=== PATIENT | female | born 1965 | race Caucasian/White ===

== ENCOUNTER 2018-09-09 18:22 | Emergency (ER) | payer OTHER, MEDICAID ==
[~2018-09-09] VITALS: Ht 157.5 cm; Wt 95.3 kg
[2018-09-09 18:30] VITALS: BP 182/100
[2018-09-09] MEDS ORDERED: ZANTAC 150MG T150 MG PO (18:34)
[2018-09-09] MEDS ORDERED: HYDROXYZINE HCL25 M1 PO (18:35)
[2018-09-09] MEDS ORDERED: MAXZIDE-25 MG1 EACH PO (18:35)
[2018-09-09] MEDS ORDERED: CELEXA40 MG PO (18:35)
[2018-09-09] MEDS ORDERED: KEFLEX500 M1 PO (19:16)
[2018-09-09] MEDS ORDERED: MEDROLDOSEPACK PO (19:16)
== END 2018-09-09 19:22 | disposition home or self-care (01) ==
LOC: M.ERS 18:22
DX: L23.7 Allergic contact dermatitis due to plants, except food (principal); I10 Essential (primary) hypertension; F41.9 Anxiety disorder, unspecified; F32.9 Major depressive disorder, single episode, unspecified; K21.9 Gastro-esophageal reflux disease without esophagitis; Z88.8 Allergy status to other drugs, medicaments and biological substances

== ENCOUNTER 2018-10-01 20:28 | Emergency (ER) | payer OTHER, MEDICAID ==
[~2018-10-01] VITALS: Ht 157.5 cm; Wt 97.5 kg
[~2018-10-01 20:28] MED LIST: CELEXA40 MG PO; HYDROXYZINE HCL25 M1 PO; KEFLEX500 M1 PO; MAXZIDE-25 MG1 EACH PO; MEDROLDOSEPACK PO; ZANTAC 150MG T150 MG PO
[2018-10-01 20:54] LABS: ABSOLUTE BASOPHILS 0.1 thou/uL (0.0-0.2); ABSOLUTE EOSINOPHILS 0.6 thou/uL (0.0-0.7); ABSOLUTE LYMPHOCYTES 2.2 thou/uL (0.8-5.3); ABSOLUTE MONOCYTES 0.9 thou/uL (0.0-1.2); ABSOLUTE NEUTROPHILS 5.7 thou/uL (1.6-8.1); BASOPHILS 1.1 %; EOSINOPHILS 6.2 %; HEMATOCRIT 46.5 % (37.0-47.0); HEMOGLOBIN 15.4 gm/dL (12.0-15.0); LYMPHOCYTES 23.1 %; MCV 81.8 fL (80.0-100.0); MONOCYTES 9.5 %; MPV 7.2 fl. (7.2-11.1); NUCLEATED RBCS 0 /100WBC; PLATELET COUNT* 316 thou/uL (150-400); POLYS 60.1 %; RBC 5.69 mil/uL (4.20-5.00); RDW-CV 15.2 % (10.5-14.5); WBC 9.4 thou/uL (4.0-11.0)
[2018-10-01 21:01] LABS: URINE BILIRUBIN NEGATIVE (Negative); URINE BLOOD NEGATIVE (Negative); URINE CLARITY CLEAR; URINE COLOR YELLOW; URINE GLUCOSE-RANDOM NEGATIVE (Negative); URINE KETONES NEGATIVE (Negative); URINE LEUKOCYTES-REFLEX NEGATIVE (Negative); URINE NITRITE-REFLEX NEGATIVE (Negative); URINE PROTEIN NEGATIVE (Negative); URINE UROBILINOGEN 0.2 E.U./dl (0.2-1.0)
[2018-10-01 21:03] LABS: ANION GAP 8 mmol/L (7-16); BUN 12 mg/dL (7-18); CALCIUM 8.6 mg/dL (8.5-10.1); CHLORIDE 102 mmol/L (98-107); CO2 29 mmol/L (21-32); CREATININE 0.9 mg/dL (0.6-1.3); GLUCOSE 110 mg/dL (70-99); POTASSIUM 3.7 mmol/L (3.5-5.1); SODIUM 139 mmol/L (136-145)
[2018-10-01 21:09] LABS: AMP/METHAMP Negative (Negative); BARBITURATES Negative (Negative); BENZODIAZEPINES Negative (Negative); COCAINE Negative (Negative); METHADONE Negative (Negative); OPIATES Negative (Negative); PCP Negative (Negative); THC Negative (Negative)
[2018-10-01 21:18] LABS: ALBUMIN 2.9 g/dL (3.4-5.0); ALKALINE PHOSPHATASE 63 U/L (46-116); LIPASE 133 U/L (73-393); NT-PRO BRAIN NAT PEPTIDE 146 pg/mL (<300); SGOT 21 U/L (15-37); SGPT 27 U/L (30-65); TOTAL BILIRUBIN 0.3 mg/dL (<0.1-1.0); TROPONIN-I LEVEL <0.06 ng/mL (<0.06)
[2018-10-01] MEDS ORDERED: ZOFRAN ODT4 MG PO (23:30)
[2018-10-01] MEDS ORDERED: PREDNISONE50 MG PO (23:30)
[2018-10-01] MEDS ORDERED: MOTION RELIEF25 MG PO (23:30)
[2018-10-01 23:50] VITALS: BP 150/78
--- NOTE | 2018-10-02 10:50 | EKG ---
[place] [address] ELECTROCARDIOGRAM REPORT Name: LYLA BROWN Room: [facility]#: [id number] Admission: 10/01/18 Attend Phys: Discharge: 10/01/18 Date of : 67 Report #: [id number] THIS REPORT FOR: //name// [facility] ED Test Date: 2018-10-01 Test Time: 20:52:19 Pat Name: LYLA STEPHANIE Department: Room: Gender: F Hematology Supervisor: [place] : 1965 Requested By: Cher Negrete Order Number: [id number] MD: Leon Bobo Measurements Intervals [place] Rate: 79 P: 41 NH: 132 QRS: 9 QRSD: 93 T: 27 QT: 391 QTc: 449 Interpretive Statements Sinus rhythm Low voltage, precordial leads No previous ECG available for comparison Electronically Signed On 10-02-2018 10:50:42 CDT by Leon Bobo [email or web address] <ELECTRONICALLY SIGNED> By: Leon Bobo MD, [facility] 10/02/18 1050 51 51 Leon Bobo MD, [facility] /EPI
== END 2018-10-01 23:51 | disposition home or self-care (01) ==
LOC: M.ERS 20:28
PROVIDERS: Emergency Medicine
DX: R42 Dizziness and giddiness (principal); I10 Essential (primary) hypertension; F41.9 Anxiety disorder, unspecified; F32.9 Major depressive disorder, single episode, unspecified; K21.9 Gastro-esophageal reflux disease without esophagitis; Z90.710 Acquired absence of both cervix and uterus; Z88.8 Allergy status to other drugs, medicaments and biological substances

== ENCOUNTER 2018-10-03 20:12 | Emergency (ER) | payer OTHER, MEDICAID ==
[~2018-10-03] VITALS: Ht 157.5 cm; Wt 97.5 kg
[~2018-10-03 20:12] MED LIST changes: +MOTION RELIEF25 MG PO; +PREDNISONE50 MG PO; +ZOFRAN ODT4 MG PO
[2018-10-03] MEDS ORDERED: KEFLEX500 M1 PO (20:56)
[2018-10-03 21:07] VITALS: BP 146/93
== END 2018-10-03 21:08 | disposition home or self-care (01) ==
LOC: M.ERS 20:12
DX: S80.02XA Contusion of left knee, initial encounter (principal); L03.115 Cellulitis of right lower limb; R60.0 Localized edema; I10 Essential (primary) hypertension; F41.9 Anxiety disorder, unspecified; F32.9 Major depressive disorder, single episode, unspecified; K21.9 Gastro-esophageal reflux disease without esophagitis; Z90.710 Acquired absence of both cervix and uterus; Z88.8 Allergy status to other drugs, medicaments and biological substances; W18.39XA Other fall on same level, initial encounter; Y93.89 Activity, other specified; Y92.89 Other specified places as the place of occurrence of the external cause; Y99.0 Civilian activity done for income or pay

== ENCOUNTER 2019-11-17 22:35 | Emergency (ER) | payer OTHER, MEDICAID ==
[~2019-11-17] VITALS: Ht 157.5 cm; Wt 95.3 kg
[2019-11-17] MEDS ORDERED: BUSPIRONE HCL15 MG PO (22:54)
[2019-11-17] MEDS ORDERED: SERTRALINE HCL50 MG PO (22:54)
[2019-11-17] MEDS ORDERED: OMEPRAZOLE 20 M20 M1 PO (22:55)
[2019-11-17] MEDS ORDERED: MOBIC15 MG PO (23:59)
[2019-11-18 00:17] VITALS: BP 161/108
== END 2019-11-18 00:17 | disposition home or self-care (01) ==
LOC: M.ERS 22:35
DX: S93.492A Sprain of other ligament of left ankle, initial encounter (principal); I10 Essential (primary) hypertension; K21.9 Gastro-esophageal reflux disease without esophagitis; Z88.8 Allergy status to other drugs, medicaments and biological substances; Z90.710 Acquired absence of both cervix and uterus; X50.1XXA Overexertion from prolonged static or awkward postures, initial encounter; Y93.89 Activity, other specified; Y92.89 Other specified places as the place of occurrence of the external cause; Y99.8 Other external cause status

== ENCOUNTER 2019-11-24 18:40 | Emergency (ER) | payer OTHER, MEDICAID ==
[~2019-11-24] VITALS: Ht 157.5 cm; Wt 99.8 kg
[~2019-11-24 18:40] MED LIST changes: +BUSPIRONE HCL15 MG PO; +MOBIC15 MG PO; +OMEPRAZOLE 20 M20 M1 PO; +SERTRALINE HCL50 MG PO
[2019-11-24] MEDS ORDERED: SEROQUEL 25 MG25 MG PO (19:00)
[2019-11-24] MEDS ORDERED: PROMETHAZINE-D473 M1 PO (19:27)
[2019-11-24] MEDS ORDERED: IMITREX 50 MG T50 MG PO (19:52)
[2019-11-24 20:03] VITALS: BP 161/96
== END 2019-11-24 20:05 | disposition home or self-care (01) ==
LOC: M.ERS 18:40
DX: J06.9 Acute upper respiratory infection, unspecified (principal); Z20.828 Contact with and (suspected) exposure to other viral communicable diseases; G43.909 Migraine, unspecified, not intractable, without status migrainosus; I10 Essential (primary) hypertension; Z79.899 Other long term (current) drug therapy; Z88.1 Allergy status to other antibiotic agents

== ENCOUNTER 2019-11-27 09:07 | Emergency (ER) | payer OTHER, MEDICAID ==
[~2019-11-27] VITALS: Ht 157.5 cm; Wt 99.8 kg
[~2019-11-27 09:07] MED LIST changes: +IMITREX 50 MG T50 MG PO; +PROMETHAZINE-D473 M1 PO; +SEROQUEL 25 MG25 MG PO
[2019-11-27] MEDS ORDERED: AUGMENTIN 875-1 EACH PO (10:10)
[2019-11-27 10:25] VITALS: BP 148/90
== END 2019-11-27 10:26 | disposition home or self-care (01) ==
LOC: M.ERS 09:07
DX: J02.0 Streptococcal pharyngitis (principal); I10 Essential (primary) hypertension; Z88.1 Allergy status to other antibiotic agents; Z90.710 Acquired absence of both cervix and uterus; Z79.899 Other long term (current) drug therapy

== ENCOUNTER 2020-01-07 06:09 | Emergency (ER) | payer OTHER, MEDICAID ==
[~2020-01-07] VITALS: Ht 157.5 cm; Wt 99.8 kg
[~2020-01-07 06:09] MED LIST changes: +AUGMENTIN 875-1 EACH PO
[2020-01-07] MEDS ORDERED: CILOXAN5 ML EA. EYE (06:29)
[2020-01-07 06:36] VITALS: BP 181/89
== END 2020-01-07 06:37 | disposition home or self-care (01) ==
LOC: M.ERS 06:09
DX: H10.9 Unspecified conjunctivitis (principal); I10 Essential (primary) hypertension; K21.9 Gastro-esophageal reflux disease without esophagitis; Z88.8 Allergy status to other drugs, medicaments and biological substances; Z88.1 Allergy status to other antibiotic agents; Z90.710 Acquired absence of both cervix and uterus

== ENCOUNTER 2020-01-17 12:17 | Emergency (ER) | payer OTHER, MEDICAID ==
[~2020-01-17] VITALS: Ht 157.5 cm; Wt 99.8 kg
[~2020-01-17 12:17] MED LIST changes: +CILOXAN5 ML EA. EYE
[2020-01-17 12:31] LABS: URINE BILIRUBIN NEGATIVE (Negative); URINE BLOOD NEGATIVE (Negative); URINE CLARITY CLEAR; URINE COLOR YELLOW; URINE GLUCOSE-RANDOM NEGATIVE (Negative); URINE KETONES NEGATIVE (Negative); URINE LEUKOCYTES-REFLEX NEGATIVE (Negative); URINE NITRITE-REFLEX NEGATIVE (Negative); URINE PROTEIN NEGATIVE (Negative); URINE SPECIFIC GRAVITY >= 1.030 (1.005-1.030); URINE UROBILINOGEN 0.2 E.U./dl (0.2-1.0)
[2020-01-17 12:42] LABS: ABSOLUTE BASOPHILS 0.1 thou/uL (0.0-0.2); ABSOLUTE EOSINOPHILS 0.2 thou/uL (0.0-0.7); ABSOLUTE LYMPHOCYTES 1.8 thou/uL (0.8-5.3); ABSOLUTE MONOCYTES 0.5 thou/uL (0.0-1.2); ABSOLUTE NEUTROPHILS 5.2 thou/uL (1.6-8.1); EOSINOPHILS 2.6 %; HEMATOCRIT 45.5 % (37.0-47.0); HEMOGLOBIN 15.1 gm/dL (12.0-15.0); LYMPHOCYTES 23.3 %; MCH 27.6 pg (26.0-34.0); MCHC 33.2 g/dL (28.0-37.0); MCV 83.1 fL (80.0-100.0); MONOCYTES 6.8 %; MPV 7.1 fl. (7.2-11.1); NUCLEATED RBCS 0 /100WBC; PLATELET COUNT* 338 thou/uL (150-400); POLYS 66.3 %; RBC 5.48 mil/uL (4.20-5.00); RDW-CV 14.5 % (10.5-14.5); WBC 7.8 thou/uL (4.0-11.0)
[2020-01-17 13:13] LABS: CREATININE 1.3 mg/dL (0.6-1.3); POTASSIUM 3.1 mmol/L (3.5-5.1)
[2020-01-17 13:18] LABS: ALBUMIN 3.8 g/dL (3.4-5.0); TOTAL BILIRUBIN 0.7 mg/dL (<0.1-1.0); TOTAL PROTEIN 7.9 g/dL (6.4-8.2)
[2020-01-17] MEDS ORDERED: ONDANSETRON ODT4 MG PO (14:17)
[2020-01-17] MEDS ORDERED: NORCO 5-325 TA1 EAC2 PO (14:17)
[2020-01-17 14:31] VITALS: BP 140/101
== END 2020-01-17 14:31 | disposition home or self-care (01) ==
LOC: M.ERS 12:17
PROVIDERS: Physician Assistant
DX: R73.9 Hyperglycemia, unspecified (principal); R10.11 Right upper quadrant pain; R11.2 Nausea with vomiting, unspecified; R19.7 Diarrhea, unspecified; I10 Essential (primary) hypertension; Z90.710 Acquired absence of both cervix and uterus; Z79.899 Other long term (current) drug therapy; Z88.1 Allergy status to other antibiotic agents

== ENCOUNTER 2020-05-14 13:43 | Emergency (ER) | payer OTHER, MEDICAID ==
[~2020-05-14] VITALS: Ht 157.5 cm; Wt 102.1 kg
[~2020-05-14 13:43] MED LIST changes: +NORCO 5-325 TA1 EAC2 PO; +ONDANSETRON ODT4 MG PO
[2020-05-14 14:43] LABS: ABSOLUTE BASOPHILS 0.1 thou/uL (0.0-0.2); ABSOLUTE EOSINOPHILS 0.3 thou/uL (0.0-0.7); ABSOLUTE LYMPHOCYTES 1.4 thou/uL (0.8-5.3); ABSOLUTE MONOCYTES 0.6 thou/uL (0.0-1.2); ABSOLUTE NEUTROPHILS 3.8 thou/uL (1.6-8.1); BASOPHILS 1.1 %; EOSINOPHILS 4.1 %; HEMATOCRIT 40.7 % (37.0-47.0); HEMOGLOBIN 13.6 gm/dL (12.0-15.0); LYMPHOCYTES 22.4 %; MCH 27.8 pg (26.0-34.0); MCHC 33.5 g/dL (28.0-37.0); MONOCYTES 10.3 %; MPV 7.1 fl. (7.2-11.1); NUCLEATED RBCS 0 /100WBC; PLATELET COUNT* 266 thou/uL (150-400); POLYS 62.1 %; RBC 4.91 mil/uL (4.20-5.00); RDW-CV 14.6 % (10.5-14.5); WBC 6.2 thou/uL (4.0-11.0)
[2020-05-14 14:54] LABS: CALCIUM 8.8 mg/dL (8.5-10.1); CREATININE 0.9 mg/dL (0.6-1.3); POTASSIUM 3.3 mmol/L (3.5-5.1)
[2020-05-14 15:06] LABS: ALBUMIN 3.2 g/dL (3.4-5.0); TOTAL BILIRUBIN 0.4 mg/dL (<0.1-1.0); TOTAL PROTEIN 6.8 g/dL (6.4-8.2)
[2020-05-14 16:43] LABS: URINE BILIRUBIN NEGATIVE (Negative); URINE BLOOD NEGATIVE (Negative); URINE CLARITY CLEAR; URINE COLOR YELLOW; URINE GLUCOSE-RANDOM NEGATIVE (Negative); URINE KETONES NEGATIVE (Negative); URINE LEUKOCYTES-REFLEX NEGATIVE (Negative); URINE NITRITE-REFLEX NEGATIVE (Negative); URINE PROTEIN NEGATIVE (Negative); URINE SPECIFIC GRAVITY 1.025 (1.005-1.030); URINE UROBILINOGEN 0.2 E.U./dl (0.2-1.0)
[2020-05-14] MEDS ORDERED: NORCO5 PO (17:12)
[2020-05-14] MEDS ORDERED: ONDANSETRON ODT4 MG PO (17:12)
[2020-05-14 17:27] VITALS: BP 150/88
--- NOTE | 2020-05-15 10:14 | EKG ---
[place] [address] ELECTROCARDIOGRAM REPORT Name: LYLA BROWN Room: [facility]#: [id number] Admission: 05/14/20 Attend Phys: Discharge: 05/14/20 Date of : 67 Date of Service: 05/14/20 1455 Report #: [id number] THIS REPORT FOR: //name// [facility] ED Test Date: 2020-05-14 Test Time: 14:55:24 Pat Name: LYLA BROWN Department: Room: Gender: F A/C Tech: [facility] : 1965 Requested By: Rosalind Gill Order Number: [id number] MD: Bryan Castro Measurements Intervals [place] Rate: 53 P: 54 NH: 136 QRS: 44 QRSD: 93 T: 39 QT: 459 QTc: 431 Interpretive Statements Sinus rhythm Low voltage, precordial leads Compared to ECG 10/01/2018 20:52:19 No significant changes Electronically Signed On 05-15-2020 10:14:04 CDT by Bryan Castro [email or web address] <ELECTRONICALLY SIGNED> By: Bryan Castro MD, [facility] 05/15/20 1014 1455 1455 Bryan Castro MD, [facility] /EPI
== END 2020-05-14 17:28 | disposition home or self-care (01) ==
LOC: M.ERS 13:43
PROVIDERS: Physician Assistant
DX: R10.11 Right upper quadrant pain (principal); M54.5 Low back pain; I10 Essential (primary) hypertension; F41.9 Anxiety disorder, unspecified; F32.9 Major depressive disorder, single episode, unspecified; K21.9 Gastro-esophageal reflux disease without esophagitis; Z90.711 Acquired absence of uterus with remaining cervical stump; Z79.899 Other long term (current) drug therapy; Z88.1 Allergy status to other antibiotic agents